=== PATIENT | female | born 1970 | race Caucasian/White ===

== ENCOUNTER 2016-06-06 13:42 | Inpatient (IN) | payer SELFPAY ==
[2016-06-06] VITALS (20 sets, daily range): BP systolic 103–146; BP diastolic 66–102
[~2016-06-06] VITALS: Ht 167.6 cm; Wt 70.3 kg
[~2016-06-06 13:42] MED LIST: ETOMIDATE 2MG/ML 10ML VIAL IV ONE; IOHEXOL-350 100 ML BOTTLE ONE; NALOXONE HCL 0.4 MG/ML 1ML VIAL ONE; SODIUM CHLORIDE 0.9% 10ML VIAL ONE; STERILE WATER FOR INJECTION 10ML VIAL ONE; VECURONIUM BROMIDE 10 MG/VIAL IV ONE
[2016-06-06] MEDS ORDERED: PROPOFOL 10MG/ML 100ML 100 ML IV ONE ×2 (14:07→14:15)
[2016-06-06] MEDS ORDERED: NALOXONE HCL 1 MG/ML 2ML VIAL IV ONE (14:15)
[2016-06-06] MEDS ORDERED: ROCURONIUM BROMIDE 10MG/ML VIAL 5ML IV ONE (14:15)
[2016-06-06 14:26] LABS: BG CARBOXYHEMOGLOBIN 0.5 % (0.5-1.5); BG DEOXYHEMOGLOBIN 0.6 % (0.0-5.0); BG HCO3 ACT 18.2 mmol/L (22.0-26.0); BG METHEMOGLOBIN 0.4 % (0.0-1.5); BG OXYGEN SATURATION 99.4 % (92.0-98.5); BG OXYHEMOGLOBIN 98.5 % (94.0-97.0); BG PCO2 35.9 mmHg (35.0-45.0); BG PH 7.323 (7.350-7.450); BG PO2 356.6 mmHg (75.0-100.0); BG SAMPLE SITE RIGHT BRACHIAL; BG TIDAL VOLUME(mL) 500 mL; BG TOTAL HEMOGLOBIN 13.6 g/dL (12.0-18.0); BG VENT MODE VENT - A/C; BG VENT RATE 14 set
[2016-06-06 14:48] LABS: CHLORIDE 111 mEq/L (98-107); INDEX HEMOLYSI 1 (1-3); INDEX ICTERIC 1 (1-4); INDEX LIPEMIC 1 (1-3)
[2016-06-06 14:52] LABS: BASOPHILS % 0.4 % (0.0-2.0); EOSINOPHILS % 1.5 % (0.0-5.0); HEMATOCRIT. 40.9 % (36.0-48.0); HEMOGLOBIN. 13.6 g/dL (12.0-16.0); LYMPHOCYTES % 18.4 % (20.0-50.0); MEAN CORPUSCULAR HGB CONC 33.2 g/dL (31.0-37.0); MEAN CORPUSCULAR VOLUME 84.2 fL (81.0-99.0); MEAN PLATELET VOLUME 8.1 fl (7.4-10.4); MONOCYTES % 5.1 % (2.0-8.0); NEUTROPHILS % 74.6 % (40.0-76.0); PLATELET 289 x1000/uL (130-400); RED BLOOD CELL COUNT 4.86 mill/uL (4.2-5.4); WHITE BLOOD COUNT 24.2 x1000/uL (4.5-11.0)
[2016-06-06 14:56] LABS: ALANINE AMINOTRANSFERASE 17 IU/L (13-61); ANION GAP 12; CARBON DIOXIDE 22 mEq/L (21-32); ETHANOL BLOOD < 10 mg/dL; UREA NITROGEN BLOOD 15 mg/dL (7-21); eGFR > 60 mL/min (>60)
[2016-06-06] MEDS ORDERED: CLONIDINE 0.1MG TABLET PO PRN (15:15)
[2016-06-06] MEDS ORDERED: NA PHOS,M-B/NA PHOS,DI-BA ENEMA 118ML PR PRN (15:15)
[2016-06-06] MEDS ORDERED: LORAZEPAM 2MG/ML CPJ IV PRN (15:15)
[2016-06-06] MEDS ORDERED: DIPHENHYDRAMINE 50MG/ML VIAL IV PRN (15:15)
[2016-06-06] MEDS ORDERED: ACETAMINOPHEN 325MG TABLET PO PRN (15:15)
[2016-06-06] MEDS ORDERED: IPRATROPIUM/ALBUTEROL 0.5-3(2.5)MG/3ML NEB INH PRN (15:15)
[2016-06-06] MEDS ORDERED: MAGNESIUM/ALUMINUM HYDROXIDE/SIMETHICONE 30ML UDC PO PRN (15:15)
[2016-06-06] MEDS ORDERED: ONDANSETRON HCL 4MG/2ML VIAL IV PRN (15:15)
[2016-06-06 16:00] LABS: CLARITY URINE CLEAR (CLEAR); COLOR URINE YELLOW (YELLOW); GLUCOSE URINE NEGATIVE (NEGATIVE); KETONES URINE NEGATIVE (NEGATIVE); LEUKOCYTE ESTERASE URINE NEGATIVE (NEGATIVE); NITRITE URINE NEGATIVE (NEGATIVE); OCCULT BLOOD URINE TRACE (NEGATIVE); PROTEIN URINE 2+ (NEGATIVE); SPECIFIC GRAVITY URINE 1.019 (1.005-1.030); UROBILINOGEN URINE 0.2 E.U./dL (0.2-1.0)
[2016-06-06 16:05] LABS: LACTIC ACID 3.9 mmol/L (0.4-2.0)
[2016-06-06 16:08] LABS: *BARBITURATES SCREEN URINE NEGATIVE (NEGATIVE); *BENZODIAZEPINES SCREEN URINE NEGATIVE (NEGATIVE); *COCAINE SCREEN URINE NEGATIVE (NEGATIVE); ECSTASY MDMA SCREEN URINE NEGATIVE (NEGATIVE); METHADONE URINE SCREEN NEGATIVE (NEGATIVE); OPIATES URINE SCREEN NEGATIVE (NEGATIVE); PHENCYCLIDINE URINE SCREEN NEGATIVE (NEGATIVE)
[2016-06-06 16:13] LABS: *AMPHETAMINES SCREEN URINE PRESUMTIVE POSITIVE (NEGATIVE); CANNABINOID URINE SCREEN PRESUMTIVE POSITIVE (NEGATIVE)
[2016-06-06 16:18] LABS: BACTERIA URINE TRACE; RBC URINE 0-2 /hpf (0-2); SQUAMOUS EPITHELIAL CELL URINE FEW /lpf (RARE/1+); WBC URINE 0-2 /hpf (0-2)
[2016-06-06] MEDS ORDERED: DEXT 5%/0.45% NACL 1000ML 1,000 ML IV SCH (16:45)
[2016-06-06] MEDS ORDERED: GABA-290 PO (17:36)
[2016-06-06] MEDS ORDERED: CYCL5TAB PO (17:36)
[2016-06-06] MEDS ORDERED: LISI10TA5 PO (17:36)
[2016-06-06] MEDS ORDERED: AMLO10TA80 PO (17:36)
[2016-06-06] MEDS ORDERED: ACET-2178 PO (17:36)
[2016-06-06] MEDS ORDERED: MONT10TA24 PO (17:36)
[2016-06-06] MEDS ORDERED: VANCOMYCIN 1,750 MG in DEXT 5% WATER 500 ML IV NR (18:00)
[2016-06-06] MEDS ORDERED: MVI, ADULT NO.1 10 ML, FOLIC ACID 1 MG, THIAMINE HCL 100 MG in SODIUM CHLORIDE 0.9% 1,0... IV NR ×4 (18:00)
[2016-06-06] MEDS: PIPERACILLIN/TAZ 3.375G PREMIX 50 ML IV SCH (18:49)
[2016-06-06] MEDS: PROPOFOL 10MG/ML 100ML 100 ML IV PRN ×2 (19:01→23:15)
[2016-06-06 20:23] LABS: HCG SCREEN NEGATIVE
[2016-06-06] MEDS: IPRATROPIUM/ALBUTEROL 0.5-3(2.5)MG/3ML NEB HHN SCH (20:26)
[2016-06-06] MEDS ORDERED: POTASSIUM CHLORIDE INJ 40 MEQ in DEXT 5% WATER 250 ML IV NR (21:00)
[2016-06-06] MEDS ORDERED: PHENYTOIN SODIUM 500 MG in SODIUM CHLORIDE 0.9% 50 ML IV SCH (21:00)
[2016-06-06] MEDS ORDERED: PHENYTOIN SODIUM 1,000 MG in SODIUM CHLORIDE 0.9% 100 ML IV ONE (21:00)
[2016-06-06] MEDS ORDERED: MANNITOL 12.5G (25%) VIAL 50ML IV SCH (21:00)
[2016-06-06] MEDS ORDERED: NICARDIPINE 100 MG in SODIUM CHLORIDE 0.9% 60 ML IV PRN (21:00)
[2016-06-06] MEDS ORDERED: MANNITOL 20% (20GM/100ML) BAG 500ML PREMIX IV SCH (21:00)
[2016-06-06] MEDS: DEXAMETHASONE 10MG/ML 1ML VIAL IV SCH (22:15)
[2016-06-06 23:34] LABS: CREATINE KINASE MB FRACTION 7.2 ng/mL (0.5-3.6)
[2016-06-06 23:43] LABS: TROPONIN I 8.7 ng/mL (0.00-0.04)
[2016-06-07] VITALS (7 sets, daily range): BP systolic 112–130; BP diastolic 82–96
[2016-06-07] MEDS: IPRATROPIUM/ALBUTEROL 0.5-3(2.5)MG/3ML NEB HHN SCH (00:23)
[2016-06-07] MEDS: DEXAMETHASONE 10MG/ML 1ML VIAL IV SCH (00:24)
[2016-06-07] MEDS: PIPERACILLIN/TAZ 3.375G PREMIX 50 ML IV SCH (00:24)
[2016-06-07] MEDS ORDERED: VANCOMYCIN 1 G PREMIX 200 ML IV SCH (06:00)
[2016-06-07] MEDS ORDERED: PHENYTOIN SODIUM 100MG/2ML VIAL IV SCH (06:00)
[2016-06-07] MEDS ORDERED: ENOXAPARIN 40MG/0.4ML SYR SUBCUT SCH (09:00)
[2016-06-07] MEDS ORDERED: PANTOPRAZOLE SODIUM 40 MG/VIAL IV SCH (09:00)
== END 2016-06-07 01:53 | disposition short-term general hospital (02) | DRG 720 ==
LOC: ER 13:52 → MICUSO 15:10
PROVIDERS: ADMIT Internal Medicine; ATTEND Internal Medicine
PROC: 5A1935Z Respiratory Ventilation, Less than 24 Consecutive Hours (ICD-10-PCS; principal; 2016-06-06)
PROC: 0BH17EZ Insertion of Endotracheal Airway into Trachea, Via Natural or Artificial Opening (ICD-10-PCS; 2016-06-06)
DX: A41.9 Sepsis, unspecified organism (principal); J96.00 Acute respiratory failure, unspecified whether with hypoxia or hypercapnia; I60.9 Nontraumatic subarachnoid hemorrhage, unspecified; G93.40 Encephalopathy, unspecified; J18.9 Pneumonia, unspecified organism; E44.0 Moderate protein-calorie malnutrition; J45.909 Unspecified asthma, uncomplicated; E87.6 Hypokalemia; E87.5 Hyperkalemia; I10 Essential (primary) hypertension; F19.10 Other psychoactive substance abuse, uncomplicated; Z68.25 Body mass index [BMI] 25.0-25.9, adult
CPT/HCPCS: 31500; 36415; 36600; 43753; 51702; 70450; 70496; 71010; 80053; 80305; 81001; 82375; 82550; 82553; 82805; 83036; 83605; 84484; 84703; 85025; 87040; 87070; 87086; 93005; 93970; 96374; 99291; A4216; G0482; J1100; J1165; J2150; J2310; J2543; J2704; J3370; J3411; J3480; J3490; J7030; J7060; J7620